=== PATIENT | female | born 1950 | race Caucasian/White ===

== ENCOUNTER 2019-06-27 06:32 | Day surgery (SDC) | payer MEDICARE, MEDICAID ==
[2019-06-27] VITALS (7 sets, daily range): BP systolic 150–173; BP diastolic 78–111
[~2019-06-27] VITALS: Ht 157.5 cm; Wt 75.4 kg
[2019-06-27] MEDS ORDERED: BENZ200C53 PO (07:17)
[2019-06-27] MEDS ORDERED: POLY17PO10 PO (07:17)
[2019-06-27] MEDS ORDERED: ASPI-1264 PO (07:17)
[2019-06-27] MEDS ORDERED: SENN-162 PO (07:17)
[2019-06-27] MEDS ORDERED: MULT1TAB74 PO (07:17)
[2019-06-27] MEDS ORDERED: BISA10SU60 RC (07:17)
[2019-06-27] MEDS ORDERED: MORP-92 PO (07:17)
[2019-06-27] MEDS ORDERED: CYCL-394 PO (07:17)
[2019-06-27] MEDS ORDERED: LISI-600 PO (07:17)
[2019-06-27] MEDS ORDERED: HYDR-4383 PO (07:17)
[2019-06-27] MEDS ORDERED: APIX5TAB3 PO (07:17)
[2019-06-27] MEDS ORDERED: LORA-269 PO (07:17)
[2019-06-27] MEDS ORDERED: FURO-149 PO (07:17)
[2019-06-27] MEDS ORDERED: LORazepam 1 MG tablet PO ONE (09:20)
== END 2019-06-27 09:50 | disposition home or self-care (01) ==
LOC: SSTAY O 06:32
PROVIDERS: ATTEND Radiology Vascular & Interventional Radiology
DX: J90 Pleural effusion, not elsewhere classified (principal); M81.0 Age-related osteoporosis without current pathological fracture; F41.9 Anxiety disorder, unspecified; I10 Essential (primary) hypertension; F32.9 Major depressive disorder, single episode, unspecified; Z98.890 Other specified postprocedural states; Z85.3 Personal history of malignant neoplasm of breast; Z79.899 Other long term (current) drug therapy; Z79.82 Long term (current) use of aspirin
CPT/HCPCS: 32555; 71045; C1729